=== PATIENT | male | born 1960 | race Caucasian/White ===

== ENCOUNTER 2021-11-15 07:34 | Outpatient (CLI) | payer OTHER | END 2021-11-15 07:35 | disposition home or self-care (01) | LOC: NUCLEAR 07:34 | PROVIDERS: ATTEND Internal Medicine Cardiovascular Disease | DX: I11.9 Hypertensive heart disease without heart failure (principal) ==

== ENCOUNTER 2021-11-15 09:05 | Outpatient (CLI) | payer OTHER | END 2021-11-15 09:06 | disposition home or self-care (01) | LOC: LAB 09:05 | PROVIDERS: ATTEND Internal Medicine Cardiovascular Disease | DX: E11.9 Type 2 diabetes mellitus without complications (principal) ==

== ENCOUNTER 2023-02-17 21:10 | Emergency (ER) | payer OTHER ==
[~2023-02-17] VITALS: Ht 167.6 cm; Wt 88.9 kg
[2023-02-17] MEDS ORDERED: ELIQUIS5 MG PO (21:28)
[2023-02-17] MEDS ORDERED: ALTOPREV40 MG PO (21:29)
[2023-02-17] MEDS ORDERED: LEVO-T50 MCG PO (21:29)
[2023-02-17] MEDS ORDERED: AMLODIPINE-OLM1 EACH PO (21:29)
[2023-02-17] MEDS ORDERED: AVALIDE 300-121 EACH PO (21:29)
[2023-02-17] MEDS ORDERED: CRESTOR40 MG PO (21:29)
[2023-02-17] MEDS ORDERED: ADULT LOW DOSE81 M1 PO (21:30)
[2023-02-17] MEDS ORDERED: LOPRESSOR25 MG PO (21:30)
[2023-02-17] MEDS ORDERED: LANTUS SOL100 UNIT/1 (21:30)
[2023-02-17] MEDS ORDERED: FARXIGA10 MG PO (21:30)
== END 2023-02-17 23:32 | disposition home or self-care (01) ==
LOC: ER 21:10
DX: D64.9 Anemia, unspecified (principal); E11.9 Type 2 diabetes mellitus without complications; Z79.4 Long term (current) use of insulin; I10 Essential (primary) hypertension

== ENCOUNTER 2023-05-29 10:44 | Emergency (ER) | payer OTHER ==
[~2023-05-29] VITALS: Ht 167.6 cm; Wt 89.8 kg
[~2023-05-29 10:44] MED LIST: ADULT LOW DOSE81 M1 PO; ALTOPREV40 MG PO; AMLODIPINE-OLM1 EACH PO; AVALIDE 300-121 EACH PO; CRESTOR40 MG PO; ELIQUIS5 MG PO; FARXIGA10 MG PO; LANTUS SOL100 UNIT/1; LEVO-T50 MCG PO; LOPRESSOR25 MG PO
[2023-05-29 13:23] LABS: HEMATOCRIT 37.7 % (39.0-48.0); HEMOGLOBIN 12.1 g/dL (13-16.00); MEAN CELL VOLUME 78.1 fL (80.0-100.00); MEAN CORPUSCULAR HEMOGLOBIN 25.1 pg (27.00-32.0); MEAN CORPUSCULAR HGB CONC 32.2 g/dl (32.0-36.0); PLATELET COUNT 298 K/uL (150-450); RED BLOOD COUNT 4.83 M/uL (4.00-6.00); RED CELL DISTRIBUTION WIDTH 20.7 % (11.5-14.5)
[2023-05-29 14:24] LABS: CALCIUM 9.9 mg/dL (8.5-10.1); CREATININE SERUM 0.98 mg/dL (0.70-1.30); GFR 78.02; POTASSIUM 4.24 mEq/L (3.5-5.1)
== END 2023-05-29 15:02 | disposition home or self-care (01) ==
LOC: ER 10:44
PROVIDERS: General Practice
DX: I48.91 Unspecified atrial fibrillation (principal); R00.2 Palpitations; R53.81 Other malaise; I10 Essential (primary) hypertension; Z88.0 Allergy status to penicillin

== ENCOUNTER 2023-08-05 18:58 | Emergency (ER) | payer OTHER ==
[~2023-08-05] VITALS: Ht 167.6 cm; Wt 88.9 kg
[2023-08-05 21:34] LABS: PH,URINE 5.5 (5.0-8.0); URINE APPEARANCE Clear; URINE BILIRRUBIN Negative (NEGATIVE); URINE BLOOD Negative; URINE COLOR Yellow; URINE LEUKOCYTE Negative; URINE NITRATE Negative; URINE PROTEIN Negative (NEGATIVE); URINE UROBILINOGEN 0.2 E.U./dl
[2023-08-05 21:37] LABS: URINE BACTERIA 25.1 uL (0.0-1933); URINE WBC 10.9 uL (0.0-23.2)
[2023-08-05 21:43] LABS: INR 1.05; PARTIAL THROMBOPLASTIN TIME 26.8 SECONDS (22.0-34.0)
[2023-08-05 21:46] LABS: CALCIUM 9.6 mg/dL (8.5-10.1); CREATININE SERUM 1.16 mg/dL (0.70-1.30); GFR 64.01; POTASSIUM 4.67 mEq/L (3.5-5.1); URINE EPITHELIAL CELLS 0.6 uL (0.0-38.8); URINE GLUCOSE >=1000 MG/DL (NEGATIVE); URINE RBC 0.8 uL (0.0-20.8)
[2023-08-05 22:00] LABS: HEMATOCRIT 28.3 % (39.0-48.0); PLATELET COUNT 301 K/uL (150-450); RED BLOOD COUNT 4.15 M/uL (4.00-6.00); RED CELL DISTRIBUTION WIDTH 19.6 % (11.5-14.5)
[2023-08-05 22:01] LABS: HEMOGLOBIN 8.5 g/dL (13-16.00); MEAN CELL VOLUME 68.1 fL (80.0-100.00); MEAN CORPUSCULAR HEMOGLOBIN 20.4 pg (27.00-32.0)
== END 2023-08-05 22:21 | disposition home or self-care (01) ==
LOC: ER 18:58
PROVIDERS: Emergency Medicine
DX: K64.8 Other hemorrhoids (principal); Z88.0 Allergy status to penicillin; D64.9 Anemia, unspecified